=== PATIENT | female | born 1970 | race Caucasian/White ===

== ENCOUNTER 2021-08-12 23:59 | Emergency (ER) | payer OTHER ==
[~2021-08-12] VITALS: Ht 152.4 cm; Wt 68.0 kg
[2021-08-13] MEDS ORDERED: TETANUS, DIPHTHERIA, PERTUSSIS VAC/PF 0.5ML (>10YR OLD) IM ONE (00:45)
[2021-08-13] MEDS ORDERED: BACITRACIN ZINC OINT UDPKT TOP ONE (00:45)
[2021-08-13] MEDS ORDERED: IBUP-2028 MT (03:44)
[2021-08-13 04:54] VITALS: BP 130/73
== END 2021-08-13 05:00 | disposition home or self-care (01) ==
LOC: ER 23:59
DX: S02.2XXA Fracture of nasal bones, initial encounter for closed fracture (principal); Y08.89XA Assault by other specified means, initial encounter; Y93.89 Activity, other specified; Y92.89 Other specified places as the place of occurrence of the external cause; Y99.8 Other external cause status; F10.229 Alcohol dependence with intoxication, unspecified; E11.9 Type 2 diabetes mellitus without complications; F17.290 Nicotine dependence, other tobacco product, uncomplicated; Y90.0 Blood alcohol level of less than 20 mg/100 ml
CPT/HCPCS: 12011; 70486; 71045; 90471; 90715; 99291